=== PATIENT | female | born 1965 | race African-American/Black ===

== ENCOUNTER 2017-02-07 21:15 | Observation (INO) | payer OTHER ==
--- NOTE | ~2017-02-07 | HM ---
Unit #: [id number] #: [id number] Patient: PENNY BENÍTEZ [id number] [facility] [address] [place], [place] [address] [id number] MR#: [id number] NAME: PENNY BENÍTEZ. : 1965 SEX: F STUDY DATE/TIME: UNIT: [facility] ROOM: 578 STUDY DESCRIPTION: Holter monitor Attending Physician: Rene Stahl M.D. Primary Care Physician: Lenard Santillan M.D. CARDIOLOGY REPORT EXAM Twenty-four hour Holter report. DATE APPLIED February 08, 2017. DATE SCANNED February 09, 2017. ORDERED BY Mini Orellana M.D. READ BY [facility] Teetee Prieto M.D. REASON FOR THE STUDY Chest pain. FINDINGS Underlying rhythm is normal sinus rhythm with an average heart rate of 91 beats per minute, minimum heart rate of 75 beats per minute, and a maximum heart rate of 138 beats per minute. The minimum heart rate of 75 beats per minute is noted at 10:01 a.m. The maximum heart rate of 138 beats per minute is noted at 9:10 a.m. The patient had a 0.96 second pause noted at 10:01 a.m. The patient had 4 premature ventricular complexes and 4 premature atrial complexes noted. The patient did not record any symptoms. CONCLUSION 1. Underlying rhythm is normal sinus rhythm with an average heart rate of 91 beats per minute, minimum heart rate of 75 beats per minute and a maximum heart rate of 138 beats per minute. 2. No sustained atrial or ventricular arrhythmias noted. 3. No significant pauses noted. 4. No significant premature atrial complexes or premature ventricular complexes noted. 5. The patient did not record any symptoms. 6. Normal 24-hour Holter report. Dictated by... Unit #: [id number] #: [id number] Patient: PENNY BENÍTEZ Vasyl Baca/kadeem TD: 02/15/2017 08:49 JOB #: [id number] CARDIOLOGY REPORT Page 1 of 1 X Teetee Ibarra MD <ELECTRONICALLY SIGNED> 04/01/17 2731 HOLTER MONITOR REPORT
--- NOTE | ~2017-02-07 | CR72 ---
[facility] A Service of [facility] RADIOLOGY TEXT RESULTS PATIENT: PENNY BENÍTEZ LOCATION: [facility] [address] : 63 UNIT #: [id number] AGE: [address]: Rene Stahl MD SEX: F ORDER DR: [id number] [facility] [address] [facility]. [place], [place] [address] [id number] I MR#: [id number] Acc #: [id number] NAME: PENNY BENÍTEZ. : 1965 SEX: F STUDY DATE/TIME: 02/08/2017 0:11 UNIT: [facility] ROOM: 44445 STUDY DESCRIPTION: CR Chest Single View Portable Attending Physician: Rene Stahl M.D. Ordering Physician: Wilber Louise D.O. Primary Care Physician: Lenard Santillan M.D. MEDICAL IMAGING REPORT This report is preliminary unless electronic signature is present EXAM Portable chest INDICATION Shortness of air for the past 2 days. PROCEDURE Frontal view chest. COMPARISON 09/26/2010 FINDINGS Heart size within normal limits. Lungs clear. No pleural fluid. No pneumothorax. IMPRESSION No active process. Dictated by... Brian Mcdowell M.D. THIS IS AN ELECTRONICALLY VERIFIED REPORT Brian Mcdowell M.D. at 02/08/2017 10:12 PM RENETTA/mitul TD: 02/08/2017 09:27 JOB #: [id number] MEDICAL IMAGING REPORT Page 1 of 1 COPY
--- NOTE | ~2017-02-07 | EKG ---
PATIENT: PENNY BENÍTEZ UNIT #: [id number] Ventricular Rate: 95 BPM Atrial Rate: 95 BPM P-R Interval: 126 ms QRS Duration: 86 ms Q-T Interval: 352 ms QTC Calculation(Bezet): 442 ms P [place]: 78 degrees Calculated R [place]: 66 degrees Calculated T [place]: 95 degrees Diagnosis Line: Normal sinus rhythm Diagnosis Line: Biatrial enlargement Diagnosis Line: T wave abnormality, consider anterior ischemia Diagnosis Line: Abnormal ECG Diagnosis Line: When compared with ECG of 18-SEP-2009 17:06, Diagnosis Line: T wave inversion now evident in Anterior leads Diagnosis Line: Confirmed by CARMELINA HERNANDEZ MD ([id number]) on Diagnosis Line: 02/08/2017 2:01:03 PM INTERPRETING MD: MARY SCHILLING
--- NOTE | ~2017-02-07 | HP ---
Unit #: [id number] #: [id number] Patient: PENNY BENÍTEZ 237505 [address] [place], [place] [address] [id number] MR#: [id number] NAME: PENNY BENÍTEZ ROOM: Age: 51 Sex: F Admission Date: 02/07/2017 : 1965 Attending Physician: Wilber Louise D.O. Primary Care Physician: Lenard Santillan M.D. HISTORY AND PHYSICAL CHIEF COMPLAINT Weakness, shortness of breath, chest pain, and adrenal mass. HISTORY This pleasant, 51-year-old female with hypertension, bipolar disorder, and COPD is admitted for weakness and lightheadedness. Patient saw Dr. Tse about a week ago for sinus drainage and just did not feel well. Over the past week, has developed postural lightheadedness, dyspnea on exertion, and near syncope last evening. Notes palpitations with the above. Had some chest discomfort as well. She tells me she was admitted to [facility] in [place], [place] in September for chest pain and ultimately had a cardiac catheterization, which was negative. Patient does have valvular heart disease. Apparently, she was quite tachycardic during that hospitalization. In our ER, a CTA of the chest was performed, which was negative except for an enlarging left adrenal mass. Patient was seen by Dr. Castañeda in 2012 after she had been evaluated by Dr. Acosta. It was recommended that the mass be resected, but, at that time, the patient was unable to follow up or schedule surgery due to some personal issues. Current labs are fairly unremarkable, but the patient is orthostatic in our ER. PAST MEDICAL HISTORY 1. Admission to [place], [place] in September for tachycardia and chest pain. Patient reports negative cardiac catheterization, although she does state that she has valvular heart disease and sees Dr. Fry. She apparently was quite tachycardic during that hospitalization. She had a cardiac catheterization performed at this facility in 2009, which was negative. 2. Hypertension. 3. Bipolar disorder and anxiety. 4. COPD. 5. GERD. 6. C section. 7. Appendectomy. 8. Hysterectomy. 9. Colon resection. ALLERGIES Darvocet. HOME MEDICATIONS 1. Lisinopril 20 mg daily. Unit #: [id number] #: [id number] Patient: PENNY BENÍTEZ 2. Singulair 10 mg daily. 3. Symbicort. 4. Albuterol MDI. 5. DuoNeb p.r.n. 6. Premarin 0.3 mg daily. 7. Trazodone 100 mg q.h.s. 8. LaMICtal 100 mg daily. 9. Paxil 25 mg daily. 10. Iron. 11. Vitamin C and D. FAMILY HISTORY CAD and lung cancer. SOCIAL HISTORY The patient stopped smoking 10 years ago. Does not drink alcohol. She currently lives alone. REVIEW OF SYSTEMS Notable for palpitations; shortness of breath; lightheadedness; chest discomfort; reportedly negative cardiac catheterization in the past with valvular heart disease; COPD; GERD; bipolar disorder; adrenal mass; abovementioned surgeries; and, also, some sleep apnea and recurrent headaches, which have worsened. All other systems were reviewed and otherwise negative. PHYSICAL EXAMINATION GENERAL APPEARANCE: Pleasant, 51-year-old female currently in no acute distress. VITAL SIGNS: Temperature 97.6, O2 saturation is 99% on room air. Supine systolic blood pressure 143 with a heart rate of 94. Standing systolic blood pressure 118 with a heart rate of 119. HEENT: Eyes: PERRLA. Extraocular muscles are intact. Pharynx is benign. NECK: Supple without adenopathy or thyromegaly. CHEST: Clear. CARDIAC: Normal S1 and S2 without definite murmur. ABDOMEN: Bowels sounds are present. No hepatosplenomegaly, tenderness, or masses. EXTREMITIES: Without edema. Pedal pulses are present. NEUROLOGIC: Patient is awake and alert. Cranial nerves are intact. Equal strength throughout. DIAGNOSTIC STUDIES ADMISSION LABS: Hematocrit 39.9, normal white count, and platelet count is 431. Coags normal. Elevated D-dimer. SMA-12 normal. Cardiac markers are negative. Urinalysis: Trace leukocyte esterase without significant white or red cells. IMAGING: Chest x-ray: No acute disease. CTA of the chest was negative for PE. There is a left adrenal indeterminant mass measuring 5.2 cm, which was 3.1 cm 12/05/2012. CARDIOVASCULAR: EKG: Sinus rhythm, rate 95 with T wave inversions noted in the precordial leads, V1 through V5. ASSESSMENT Unit #: [id number] #: [id number] Patient: PENNY BENÍTEZ 1. Complaints of dyspnea, palpitations, weakness, and lightheadedness. Patient is orthostatic in the ER. 2. Recent hospitalization in [place] for chest discomfort, patient reports negative cardiac catheterization. States that she has valvular heart disease and was tachycardic at that time. 3. Increasing left adrenal mass. Patient saw Dr. Castañeda in 2012 who recommended removal of the mass. She had already been worked up by Dr. Acosta who referred the patient to Dr. Castañeda. 4. Essential hypertension. 5. COPD. 6. Bipolar disorder. 7. Obstructive sleep apnea. PLANS 1. Obtain records from [place] in September. 2. IV fluids and repeat labs this morning. 3. Decrease lisinopril. 4. Obtain TSH and Holter monitor. 5. Will ask Dr. Castañeda to see again as patient will need resection of the adrenal mass. 6. SCDs for DVT prophylaxis. Dictated by Mini Orellana M.D. AML/pc TD: 02/08/2017 06:08 JOB #: [id number] HISTORY AND PHYSICAL Page 1 of 1 X Mini Orellana MD X HISTORY AND PHYSICAL
--- NOTE | ~2017-02-07 | DS ---
Unit #: [id number] #: [id number] Patient: PENNY BENÍTEZ [id number] [facility]. [place], [place] [address] [id number] I MR#: [id number] NAME: PENNY BENÍTEZ. ROOM: 578 Age: 51 Sex: F Admission Date: 02/07/2017 : 1965 Discharge Date: 02/08/2017 Attending Physician: Rene Stahl M.D. Primary Care Physician: Lenard Santillan M.D. DISCHARGE SUMMARY REASON FOR ADMISSION Weakness, shortness of breath, chest pain, adrenal mass. HISTORY OF PRESENT ILLNESS/HOSPITAL COURSE The patient is a very pleasant 51-year-old female with underlying history of hypertension, bipolar disorder, COPD, prior history of adrenal mass who recently moved back to [place] after several year absence, who stated that she had the above symptoms. She was admitted. She was noted to be orthostatic, hypotensive in the emergency room. She received IV fluids for the 24 hours. She was placed on telemetry floor for evaluation. CTA chest was performed which was negative for pulmonary embolism, but it did show a slight increase in her left adrenal mass. Apparently in the past in 2012, she had been evaluated by Dr. Acosta as well as Dr. Casatñeda. Recommendation at that time was made for removal; however, patient did not perform surgery secondary to personal issues. Laboratory studies were otherwise relatively unremarkable through her hospital course. Cardiac enzymes were cycled and otherwise negative. Chest x-ray also was performed and negative. At this time point in time, patient was clinically stable for discharge home. She will follow up with Dr. Tse in approximately 7-10 days for routine hospital followup. She will also follow up with Dr. Castañeda as an outpatient for the aforementioned indeterminate mass in the left adrenal fossa. It has now increased to 5.2 cm, previously it was 3.[address] image on December 05, 2012. Malignancy could not be excluded and therefore this was discussed and reviewed with the patient at time of discharge. FINAL DISCHARGE DIAGNOSES 1. Weakness, likely secondary to orthostatic hypotension. 2. Prior history of hypertension. 3. Prior history of valvular heart disease followed by [facility]. 4. Bipolar disorder. 5. Chronic obstructive pulmonary disease. 6. Adrenal mass with outpatient followup requested. 7. Bipolar disorder. 8. Anxiety. 9. Prior history of gastroesophageal reflux disease. Unit #: [id number] #: [id number] Patient: PENNY BENÍTEZ DISCHARGE MEDICATIONS 1. Proventil HFA two puffs q.8. 2. DuoNeb aerosol solution q.6 hours. 3. Symbicort 160/4.5 two puffs b.i.d. 4. Tylenol 650 mg p.o. q.4-6 p.r.n. 5. Lamictal 100 mg p.o. daily. 6. Paxil CR 25 mg p.o. daily. 7. Trazodone 100 mg p.o. nightly. 8. Lisinopril 2.5 mg p.o. daily. 9. Singulair 10 mg p.o. daily. DISCHARGE CONDITION Stable. DISCHARGE DISPOSITION Home. FOLLOWUP Followup with Dr. Tse, PCP, in 7-10 days. Dictated by... Vasyl Reina/tracy TD: 02/10/2017 08:59 JOB #: [id number] DISCHARGE SUMMARY Page 1 of 1 X Rene Stahl MD X DISCHARGE SUMMARY
--- NOTE | ~2017-02-07 | CT16 ---
[facility] A Service of [facility] RADIOLOGY TEXT RESULTS PATIENT: PENNY BENÍTEZ LOCATION: [facility] 578-01 : [birth year] UNIT #: [id number] AGE: [address]: Rene Stahl MD SEX: F ORDER DR: [id number] [facility] [address] [facility]. [place], [place] [address] [id number] I MR#: [id number] Acc #: [id number] NAME: PENNY BENÍTEZ. : 1965 SEX: F STUDY DATE/TIME: 02/08/2017 2:44 UNIT: [facility] ROOM: 00868 STUDY DESCRIPTION: CT Angio Chest for PE Attending Physician: Rene Stahl M.D. Ordering Physician: Wilber Louise D.O. Primary Care Physician: Lenard Santillan M.D. MEDICAL IMAGING REPORT This report is preliminary unless electronic signature is present EXAM CTA chest PE protocol INDICATION Elevated D-dimer level and chest pain for the past week. PROCEDURE Contrast-enhanced CTA of the chest attention on opacification pulmonary arteries. Coronal 3-D MIP sagittal reformatted images are reconstructed and submitted. This CT exam was performed with one or more of the following radiation dose reduction techniques: automatic exposure control, adjustment of mA and/or kV according to patient size, and iterative reconstruction. COMPARISON None FINDINGS No evidence for pulmonary embolus or acute aortic injury. No adenopathy. The lungs are clear. No pleural fluid or pneumothorax. There is a large mass in the left adrenal fossa that measures 5.2 cm. It has mass effect on the upper pole of the left kidney. It does not clearly arise from the left kidney. No aggressive appearing bone lesion. IMPRESSION 1. No acute findings in the chest. No evidence for pulmonary embolus. 2. There is a 5.2 cm indeterminate mass in the left adrenal fossa. It previously measured 3.1 cm on 12/05/2012. Slow interval increase in size suggests a slow-growing tumor. Malignancy is not excluded. Dictated by... [facility] A Service of [facility] RADIOLOGY TEXT RESULTS PATIENT: PENNY BENÍTEZ LOCATION: [facility] 578-01 : 63 UNIT #: [id number] AGE: [address]: Rene Stahl MD SEX: F ORDER DR: Brian Mcdowell M.D. THIS IS AN ELECTRONICALLY VERIFIED REPORT Brian Mcdowell M.D. at 02/08/2017 10:10 PM Jackson TD: 02/08/2017 09:47 JOB #: [id number] MEDICAL IMAGING REPORT Page 1 of 1 COPY
[~2017-02-07 21:15] MED LIST: ACETAMINOPHEN PR; ADVAIR 1001 DISK W/D PO; ADVAIR INH; AMBIEN PO; AMBIEN10 MG PO; AMITRYPTYLINE PO; AMOXICILLIN PO; CELEBREX PO; COMBIVENT INH14.7 GM INH; DOXEPIN PO; DUONEB 2.5-0.5 M3 ML NEB; E-MYCIN250 MG PO; GEODAN PO; IBUPROFEN PO; KETOPROFEN PO; LISINOPRIL10 MG PO; LODINE; MEDROL PO; MOBIC PO; OMNICEF PO; OSCAL PO; PAXIL PO; PREDNISONE PO; PREMARIN PO; PRILOSEC PO; PROTONIX PO; SEROQUEL PO; SINGULAIR PO; SPIRIVA18 MCG INH; SYMBICORT; TEMAZEPAM PO; VICODIN 5/500 T1 TAB PO; ZITHROMAX PO; [UNRECOGNIZED DRUG - OTHER] PO
[2017-02-08 00:48] LABS: URINE SOURCE CLEAN CATCH
[2017-02-08 00:52] LABS: BASOPHIL# 0.1 X10e3 (0-0.3); BASOPHIL% 1.2 % (0-2.5); EOSINOPHIL# 0.1 X10e3 (0-0.7); HEMATOCRIT 39.9 % (35.0-45.0); HEMOGLOBIN 12.9 gm/dL (12.0-16.0); LYMPHOCYTE# 2.7 X10e3 (1.0-3.5); LYMPHOCYTE% 34.7 % (17.0-45.0); MEAN CELL VOLUME 90.4 FL (83-96); MEAN CORPUSCULAR HEMOGLOBIN 29.3 PG (28-34); MEAN CORPUSCULAR HGB CONC 32.4 g/dL (30-36); MEAN PLATELET VOLUME 6.8 FL (6.5-11.5); MONOCYTE# 0.5 X10e3 (0-1.0); MONOCYTE% 6.1 % (3.0-12.0); NEUTROPHIL# 4.5 X10e3 (1.5-7.1); PLATELET COUNT 431 X10e3 (140-420); RED BLOOD COUNT 4.41 X10e (3.90-5.30); RED CELL DISTRIBUTION WIDTH 13.7 % (11.0-15.5); WHITE BLOOD COUNT 7.9 X10e3 (4.0-10.5)
[2017-02-08 00:54] LABS: URINE APPEARANCE CLEAR; URINE BILIRUBIN NEG (NEG); URINE BLOOD NEG (NEG); URINE COLOR YELLOW; URINE GLUCOSE NEG (NEG); URINE KETONE NEG (NEG); URINE LEUKOCYTE ESTERASE TRACE (NEG); URINE NITRATE NEG (NEG); URINE PROTEIN NEG (NEG); URINE SPECIFIC GRAVITY 1.009 (1.003-1.035); URINE UROBILINOGEN 0.2 MG/DL (NEG)
[2017-02-08 00:57] LABS: CULTURE INDICATED? YES; URBCS1 AUWI 0-2 /[HPF] (0-2); URINE BACTERIA AUWI 1+ (NEGATIVE); URINE SQUAMOUS EPITHELIAL CELL OCC /[HPF]
[2017-02-08 01:01] LABS: DIFF IND NO
[2017-02-08 01:06] LABS: PARTIAL THROMBOPLASTIN TIME 21.3 SECONDS (23.5-31.3); PROTHROMBIN TIME (PATIENT) 10.4 SECONDS (9.6-11.5)
[2017-02-08 01:16] LABS: ALBUMIN SERUM 4.3 g/dL (3.5-5.0); BILIRUBIN, DIRECT 0.1 mg/dL (0.0-0.2); BILIRUBIN,INDIRECT 0.4 mg/dL (0.0-0.9); BILIRUBIN,TOTAL 0.5 mg/dL (0.2-2.0); CALCIUM SERUM 9.2 mg/dL (8.4-10.2); POTASSIUM 4.3 mmol/L (3.5-5.1); PROTEIN TOTAL SERUM 8.3 g/dL (6.0-8.3)
[2017-02-08 02:36] LABS: POC - CKMB 1.4 ng/mL (0.0-7.9); POC - TROPONIN <0.05 ng/mL (<=0.05)
[2017-02-08 09:17] LABS: BASOPHIL# 0.1 X10e3 (0-0.3); BASOPHIL% 1.1 % (0-2.5); EOSINOPHIL# 0.2 X10e3 (0-0.7); HEMATOCRIT 37.5 % (35.0-45.0); HEMOGLOBIN 11.7 gm/dL (12.0-16.0); LYMPHOCYTE# 3.9 X10e3 (1.0-3.5); LYMPHOCYTE% 46.6 % (17.0-45.0); MEAN CELL VOLUME 91.4 FL (83-96); MEAN CORPUSCULAR HEMOGLOBIN 28.4 PG (28-34); MEAN CORPUSCULAR HGB CONC 31.1 g/dL (30-36); MONOCYTE# 0.4 X10e3 (0-1.0); MONOCYTE% 5.3 % (3.0-12.0); NEUTROPHIL# 3.8 X10e3 (1.5-7.1); PLATELET COUNT 453 X10e3 (140-420); RED CELL DISTRIBUTION WIDTH 13.7 % (11.0-15.5); WHITE BLOOD COUNT 8.4 X10e3 (4.0-10.5)
[2017-02-08 09:19] LABS: DIFF IND NO
[2017-02-08 09:25] LABS: BUN/CREATININE RATIO 17.5; CALCIUM SERUM 8.6 mg/dL (8.4-10.2); CREATININE SERUM 0.8 mg/dL (0.6-1.4); GLOM FILT RATE Estimated 98.3 mL/min (>60); POTASSIUM 4.2 mmol/L (3.5-5.1)
[2017-02-08 09:43] LABS: %MB 2.3 % (0.0-4.0); MB 1.4 ng/ml
[2017-02-08 09:58] LABS: THYROID STIMULATING HORMONE 2.31 uIU/ml (0.34-5.60)
[2017-02-08 10:05] LABS: FREE THYROXIN (T4) 0.8 ng/dL (0.58-1.64)
[2017-02-08] MEDS ORDERED: SYMBICORT INH (10:58)
[2017-02-08] MEDS ORDERED: DESYREL100 MG PO (10:59)
[2017-02-08] MEDS ORDERED: LAMICTAL100 MG PO (11:00)
[2017-02-08] MEDS ORDERED: PROAIR HFA8.5 GM INH (11:05)
[2017-02-08] MEDS ORDERED: COMBIVENT MININEB INH (11:12)
[2017-02-08] MEDS ORDERED: PAXIL CR25 MG PO (11:14)
[2017-02-08] MEDS ORDERED: ACETAMINOPHEN PO (11:19)
== END 2017-02-08 14:13 | disposition home or self-care (01) ==
LOC: CED 21:15 → CEDOF 02-08 05:45 → CED 02-08 05:51 → CEDOF 02-08 05:51 → C5C 02-08 09:17
PROVIDERS: Emergency Medicine; Internal Medicine
DX: I95.1 Orthostatic hypotension (principal); I38 Endocarditis, valve unspecified; R07.89 Other chest pain; Z86.79 Personal history of other diseases of the circulatory system; F31.9 Bipolar disorder, unspecified; J44.9 Chronic obstructive pulmonary disease, unspecified; E27.9 Disorder of adrenal gland, unspecified; F41.9 Anxiety disorder, unspecified; K21.9 Gastro-esophageal reflux disease without esophagitis; Z82.49 Family history of ischemic heart disease and other diseases of the circulatory system; Z80.1 Family history of malignant neoplasm of trachea, bronchus and lung; Z90.710 Acquired absence of both cervix and uterus; Z87.891 Personal history of nicotine dependence
CPT/HCPCS: 36415; 71010; 71275; 80048; 80076; 81003; 82550; 82553; 84439; 84443; 84484; 85025; 85379; 85610; 85730; 87086; 93005; 93225; 93226; 96360; 99285; G0378; Q9967

== ENCOUNTER → 2017-05-29 | Outpatient (CLI) | payer OTHER ==
[~2017-05-29] MED LIST changes: +ACETAMINOPHEN PO; +COMBIVENT MININEB INH; +DESYREL100 MG PO; +LAMICTAL100 MG PO; +PAXIL CR25 MG PO; +PROAIR HFA8.5 GM INH; +SYMBICORT INH
[2017-05-29 19:35] LABS: POC - CREATININE 0.85 mg/dL (0.44-1.03); POC - GFR >60.0 mL/min (>60)
== END | disposition home or self-care (01) ==
LOC: CCAT 14:42
PROVIDERS: Urology
DX: D44.12 Neoplasm of uncertain behavior of left adrenal gland (principal)
CPT/HCPCS: 82565